=== PATIENT | female | born 1990 | race Caucasian/White ===

== ENCOUNTER 2021-03-03 10:22 | Emergency (ER) | payer BC ==
[~2021-03-03] VITALS: Ht 162.6 cm; Wt 101.0 kg
--- NOTE | 2021-03-03 10:37 | NUR ---
38 wks. "heart palpitation" this am. normal so far. as
--- NOTE | 2021-03-03 11:39 | NUR ---
resting in bed nad vss awaiting labs. as
--- NOTE | 2021-03-03 11:41 | NUR ---
oob to bathroom. as
[2021-03-03 11:42] LABS: BASOPHILS % (AUTO) 0 % (0-1); EOSINOPHILS % (AUTO) 1 % (1-7); LYMPHOCYTES % (AUTO) 17 % (22-44); MEAN CORPUSCULAR HEMOGLOBIN 30.7 pg (27.0-34.8); MEAN CORPUSCULAR HGB CONC 34.2 g/dL (32.4-35.8); MEAN PLATELET VOLUME 8.5 fL (7.4-10.4); MONOCYTES % (AUTO) 8 % (2-9); NEUTROPHILS % (AUTO) 74 % (42-75); PLATELET COUNT 231 x10^3/uL (130-400); RED BLOOD COUNT 3.93 x10^6/uL (3.82-5.3); RED CELL DISTRIBUTION WIDTH 14.5 % (9.6-15.2)
[2021-03-03 11:44] LABS: ANION GAP 8 mmol/L (5-15); CALCIUM 8.8 mg/dL (8.5-10.1); CHLORIDE 110 mmol/L (98-107); CREATININE 0.56 mg/dL (0.55-1.02)
[2021-03-03 11:48] LABS: MD NO
[2021-03-03 12:03] VITALS: BP 109/69
== END 2021-03-03 12:27 | disposition home or self-care (01) ==
LOC: ED 11:38
DX: O26.893 Other specified pregnancy related conditions, third trimester (principal); R07.89 Other chest pain; R11.0 Nausea; R00.2 Palpitations; Z3A.38 38 weeks gestation of pregnancy
CPT/HCPCS: 36415; 80048; 82040; 85025; 93005; 99284

== ENCOUNTER → 2021-03-12 | Outpatient (CLI) | payer BC | END | disposition home or self-care (01) | LOC: STAR 13:02 | PROVIDERS: ATTEND Obstetrics & Gynecology Maternal & Fetal Medicine | DX: Z20.822 Contact with and (suspected) exposure to COVID-19 (principal) | CPT/HCPCS: U0003 ==

== ENCOUNTER 2021-03-16 15:22 | Inpatient (IN) | payer BC ==
[~2021-03-16] VITALS: Ht 162.6 cm; Wt 101.8 kg
[2021-03-16] MEDS ORDERED: NEWBORN KIT ONE (15:48)
[2021-03-16] MEDS ORDERED: OXYTOCIN 30U/ 0.9% NaCL 500ML 500 ML ONE (15:48)
[2021-03-16] MEDS ORDERED: LACTATED RINGERS 1,000 ML IVBOLUS ONE (16:30)
[2021-03-16] MEDS ORDERED: SODIUM CITRATE/CITRIC ACID 30 ML UDC PO ONE (16:30)
[2021-03-16] MEDS ORDERED: METOCLOPRAMIDE 5 MG/ML, 2ML IV ONE (16:30)
[2021-03-16] MEDS ORDERED: LACTATED RINGERS 1,000 ML IV SCH ×2 (16:30→19:00)
[2021-03-16 16:37] LABS: BASOPHILS % (AUTO) 0 % (0-1); EOSINOPHILS % (AUTO) 1 % (1-7); LYMPHOCYTES % (AUTO) 19 % (22-44); MEAN CORPUSCULAR HEMOGLOBIN 30.8 pg (27.0-34.8); MEAN CORPUSCULAR HGB CONC 34.2 g/dL (32.4-35.8); MEAN PLATELET VOLUME 8.5 fL (7.4-10.4); MONOCYTES % (AUTO) 7 % (2-9); NEUTROPHILS % (AUTO) 73 % (42-75); PLATELET COUNT 244 x10^3/uL (130-400); RED BLOOD COUNT 3.73 x10^6/uL (3.82-5.3); RED CELL DISTRIBUTION WIDTH 14.9 % (9.6-15.2)
[2021-03-16 16:38] LABS: MD NO
[2021-03-16] MEDS ORDERED: SODIUM CITRATE/CITRIC ACID 15 ML UDC ONE (16:40)
[2021-03-16] MEDS ORDERED: FENTANYL PF 100 MCG/2ML ONE (17:12)
[2021-03-16] MEDS ORDERED: ONDANSETRON 2MG/ML, 2ML ONE (17:12)
[2021-03-16] MEDS ORDERED: OXYTOCIN 10 UNITS/ML, 1ML ONE (17:12)
[2021-03-16] MEDS ORDERED: CEFAZOLIN 1,000 MG ONE (17:12)
[2021-03-16] MEDS ORDERED: HYDROmorphone 2 MG/ML, 1ML ONE (17:12)
[2021-03-16] MEDS ORDERED: KETOROLAC 30 MG/1 ML ONE (17:17)
[2021-03-16] MEDS ORDERED: EPHEDRINE 50 MG/ML, 1ML ONE (17:53)
[2021-03-16] MEDS ORDERED: SIMETHICONE 80 MG CHEW TAB PO PRN (19:00)
[2021-03-16] MEDS ORDERED: ONDANSETRON 2MG/ML, 2ML IV PRN (19:00)
[2021-03-16] MEDS: KETOROLAC 30 MG/1 ML IV SCH ×2 (19:00→23:57)
[2021-03-16] MEDS ORDERED: MISOPROSTOL 200 MCG TABLET PR PRN (19:00)
[2021-03-16] MEDS ORDERED: OXYcodone/APAP 5/325MG TABLET PO PRN (19:00)
[2021-03-16] MEDS ORDERED: CARBOPROST TROMETHAMINE 250 MCG/ML, 1ML IM PRN (19:00)
[2021-03-16] MEDS ORDERED: METHYLERGONOVINE 0.2 MG/ML IM PRN (19:00)
[2021-03-16] MEDS: OXYTOCIN 30U/ 0.9% NaCL 500ML 500 ML IV SCH (19:28)
[2021-03-16] MEDS: LACTATED RINGERS 1,000 ML IV SCH (19:29)
[2021-03-16] MEDS ORDERED: OXYcodone 5 MG/5 ML ORAL.SOL UDC PO PRN (19:30)
[2021-03-16] MEDS ORDERED: METHYLERGONOVINE 0.2 MG/ML IM ONE (20:09)
[2021-03-16 20:30] VITALS: BP 103/67
[2021-03-16] MEDS: OXYcodone IR 5MG TABLET PO PRN (22:26)
[2021-03-17] VITALS (7 sets, daily range): BP systolic 92–115; BP diastolic 58–76
[2021-03-17] MEDS: LACTATED RINGERS 1,000 ML IV SCH (01:00)
[2021-03-17] MEDS: OXYcodone IR 5MG TABLET PO PRN ×5 (03:34→20:11)
[2021-03-17] MEDS: OXYTOCIN 30U/ 0.9% NaCL 500ML 500 ML IV SCH (05:00)
[2021-03-17] MEDS: KETOROLAC 30 MG/1 ML IV SCH ×3 (06:04→18:12)
[2021-03-17] MEDS: ACETAMINOPHEN 325 MG TABLET PO PRN ×4 (07:50→20:10)
[2021-03-17] MEDS: PRENATAL VIT/IRON/FA 1 EACH TABLET PO SCH (07:50)
[2021-03-17] MEDS: DOCUSATE 100 MG CAPSULE PO PRN ×2 (07:52→20:10)
[2021-03-17] MEDS ORDERED: MORPHINE SULFATE 4 MG/ML, 1ML ONE (08:14)
[2021-03-17] MEDS: MORPHINE SULFATE 4 MG/ML, 1ML IVPush PRN ×4 (08:26→20:22)
[2021-03-18] MEDS: KETOROLAC 30 MG/1 ML IV SCH (00:20)
[2021-03-18] MEDS: ACETAMINOPHEN 325 MG TABLET PO PRN ×5 (00:20→19:03)
[2021-03-18] MEDS: OXYcodone IR 5MG TABLET PO PRN ×6 (00:20→23:22)
[2021-03-18] MEDS: IBUPROFEN 600 MG TABLET PO PRN ×3 (06:31→19:03)
[2021-03-18 07:54] VITALS: BP 99/67
[2021-03-18] MEDS: PRENATAL VIT/IRON/FA 1 EACH TABLET PO SCH (10:35)
[2021-03-18] MEDS: DOCUSATE 100 MG CAPSULE PO PRN ×2 (10:35→19:04)
[2021-03-18 20:03] VITALS: BP 97/65
[2021-03-19] MEDS ORDERED: MEASLES,MUMPS&RUBELLA VACC/PF 0.5 ML SQ-VACC ONE ×2 (03:30→11:01)
[2021-03-19] MEDS: OXYcodone IR 5MG TABLET PO PRN ×3 (03:50→12:15)
[2021-03-19] MEDS ORDERED: OXYC1TAB14 PO (06:59)
[2021-03-19] MEDS ORDERED: DOCU-131 PO (06:59)
[2021-03-19] MEDS ORDERED: IBUP-1222 PO (06:59)
[2021-03-19 08:00] VITALS: BP 108/76
[2021-03-19] MEDS: IBUPROFEN 600 MG TABLET PO PRN (08:03)
[2021-03-19] MEDS: DOCUSATE 100 MG CAPSULE PO PRN (08:03)
[2021-03-19] MEDS: PRENATAL VIT/IRON/FA 1 EACH TABLET PO SCH (08:03)
== END 2021-03-19 13:10 | disposition home or self-care (01) | DRG 787 ==
LOC: LDIP 15:22 → 2NW 20:15
PROVIDERS: ADMIT Obstetrics & Gynecology Maternal & Fetal Medicine; ATTEND Obstetrics & Gynecology Maternal & Fetal Medicine
PROC: 10D00Z1 Extraction of Products of Conception, Low, Open Approach (ICD-10-PCS; principal; 2021-03-16)
DX: O34.211 Maternal care for low transverse scar from previous cesarean delivery (principal); O26.62 Liver and biliary tract disorders in childbirth; K86.1 Other chronic pancreatitis; E84.9 Cystic fibrosis, unspecified; O99.52 Diseases of the respiratory system complicating childbirth; K87 Disorders of gallbladder, biliary tract and pancreas in diseases classified elsewhere; J45.909 Unspecified asthma, uncomplicated; O99.284 Endocrine, nutritional and metabolic diseases complicating childbirth; Z20.822 Contact with and (suspected) exposure to COVID-19; O69.81X0 Labor and delivery complicated by cord around neck, without compression, not applicable or unspecified; Z3A.39 39 weeks gestation of pregnancy; Z37.0 Single live birth
CPT/HCPCS: 36415; 85025; 86592; 86850; 86900; 90707; G0378; J0690; J1170; J1885; J2405; J3010; J2210; J2270; J2590; J2765; J7120